=== PATIENT | male | born 1975 | race American Indian/Alaskan Native ===

== ENCOUNTER 2019-04-19 15:17 | Emergency (ER) | payer OTHER, MEDICAID, SELFPAY ==
[2019-04-19 15:19] VITALS: BP 117/70; PULSE 70; RESP 20; TEMP 36.6; O2SAT 98
[2019-04-19 16:04] LABS: Alanine Aminotransferase 33 IU/L (<50); Albumin 4.4 g/dL (3.5-5.0); Albumin Globulin Ratio 1.3 (1.0-2.8); Alkaline Phosphatase 63 U/L (38-126); Aspartate Aminotransferase 42 IU/L (17-59); BUN Creatinine Ratio 14.4 (6-22); Bilirubin Total 0.4 mg/dL (0.2-1.3); Blood Urea Nitrogen 13 mg/dL (9-20); Calcium 8.8 mg/dL (8.4-10.2); Carbon Dioxide 30 mmol/L (22-32); Chloride 102 mmol/L (98-107); Estimated Glomerular Filt Rate > 60.0 mL/min (>60); Globulin 3.4 g/dL (1.7-4.1); Glucose 109 mg/dL (70-100); HEMOLYSIS < 15 (0-50); Potassium 4.3 mmol/L (3.4-5.1); Sodium 140 mmol/L (137-145); Total Protein 7.8 g/dL (6.3-8.2)
[2019-04-19 16:08] LABS: Add Manual Diff / Slide Review NO; Basophils Absolute Auto 0 /uL (0-100); Basophils Percent Auto 0.4 % (0-2); Eosinophils Absolute Auto 100 /uL (0-450); Eosinophils Percent Auto 2.3 % (2-4); Hematocrit 39.3 % (41-53); Hemoglobin 13.4 g/dL (13.5-17.5); Lymphocytes Absolute Auto 2300 /uL (1100-4500); Lymphocytes Percent Auto 42.4 % (25-40); Mean Corpuscular Hemoglobin 28.5 PG (26-34); Mean Corpuscular Volume 83.9 fL (80-100); Monocytes Absolute Auto 500 /uL (0-900); Monocytes Percent Auto 10.3 % (3-14); Neutrophils Absolute Auto 2400 /uL (1500-7000); Neutrophils Percent Auto 44.6 % (50-75); Platelet Count 281 X10^3/uL (150-400); Red Blood Cell Count 4.69 X10^6/uL (4.5-5.9); Red Cell Distribution Width 14.3 % (11.6-14.8); White Blood Cell Count 5.3 X10^3/uL (4.5-11.0)
--- NOTE | 2019-04-19 16:49 | DI.RAD.S_ITS ---
PROCEDURE: XR THORACIC SPINE 2V INDICATIONS: back pain TECHNIQUE: 3 views of the thoracic spine were acquired. COMPARISON: [facility], , CHEST 2 VIEW, 06/26/2017, 15:25. FINDINGS: Bones: On the lateral views, the cervicothoracic junction is adequately visualized and the alignment through this region is within normal limits. The vertebral body heights are within normal limits throughout the thoracic spine without evidence to suggest acute compression fracture. The bone mineralization is within normal limits. No significant degenerative changes of the thoracic spine are evident. Soft tissues: The imaged overlying soft tissues of the chest are within normal limits. IMPRESSION: No acute osseous abnormality or significant degenerative changes of the thoracic spine. Dictated by: Hank Valerio M.D. on 04/19/2019 at 16:05 Approved by: Hank Valerio M.D. on 04/19/2019 at 16:06
[2019-04-19] MEDS: LIDOCAINE PATCH 1 EACH ADH..PATCH TOP (17:02)
[2019-04-19] MEDS: CYCLOBENZAPRINE 10 MG TABLET PO (17:02)
[2019-04-19] MEDS: KETOROLAC 60 MG/2 ML VIAL IM (17:02)
[2019-04-19] MEDS: KETOROLAC 10MG PREPACK 1 BOTTLE MISC (17:59)
[2019-04-19] MEDS: CYCLOBENZAPRINE 10 MG PREPACK 1 BOTTLE MISC (17:59)
--- NOTE | 2019-04-19 19:57 | ED.ABDPAIN ---
HPI - Abdominal Pain <JEANE Foster - Last Filed: 04/19/19 20:02> General Chief Complaint: Abdominal Pain Stated Complaint: left side back pain,thinks kidney Time Seen by Provider: 04/19/19 16:23 Source: patient and family Mode of arrival: Ambulatory Limitations: no limitations History of Present Illness HPI narrative: The patient is a 43-year-old male former smoker with history of addiction issues on Suboxone who presents with a chief complaint of left-sided back pain. He states has been ongoing for a week, started after he was bowling. He states that the pain is just underneath his left shoulder blade and worse with pressure. He states it is worse with lifting his arm. He is worried about his kidneys. Denies dysuria urgency frequency hematuria. Denies any history of kidney stones. Denies any falls or trauma. Denies any fevers nausea vomiting or diarrhea. Related Data Previous Rx's Medication Instructions Recorded cyclobenzaprine 10 mg PO TID PRN #14 tab 04/19/19 ketorolac 10 mg PO TID PRN #14 tab 04/19/19 Allergies Allergy/AdvReac Type Severity Reaction Status Date / Time No Known Drug Allergies Allergy Verified 04/19/19 17:02 Review of Systems <NICOLE Foster - Last Filed: 04/19/19 20:02> Review of Systems Narrative: GENERAL: Denies chills, fatigue, malaise, fever, sweats. HEENT: Denies sinus pain, ear pain, sore throat, difficulty swallowing, dizziness. RESPIRATORY: Denies dyspnea, cough, wheezing, hemoptysis, sputum. CARDIOVASCULAR: Denies chest pain, palpitations, orthopnea, edema, GASTROINTESTINAL: See HPI : See HPI MUSCULOSKELETAL: see HPI SKIN: Denies rash, skin lesions, or other NEUROLOGIC: Denies weakness, headache, numbness, change in speech, confusion, seizures, incoordination. PSYCHIATRIC: No concerning psychosocial issues. 12 point review of systems is negative except for those stated above Exam <JEANE Foster - Last Filed: 04/19/19 20:02> Narrative Exam Narrative: GENERAL: This is a well-nourished, well-developed patient, in no acute distress HEAD: Atraumatic. Normocephalic. No temporal or scalp tenderness. EYES: Pupils equal round and reactive. Extraocular motions intact. No scleral icterus. No injection or drainage. ENT: Nose without bleeding, purulent drainage or septal hematoma. Throat without erythema, tonsillar hypertrophy or exudate. Uvula midline. Airway patent. NECK: Trachea midline. No JVD or lymphadenopathy. Supple, nontender, no meningeal signs. CARDIOVASCULAR: Regular rate and rhythm without murmurs, gallops, or rubs. RESPIRATORY: Clear to auscultation. Breath sounds equal bilaterally. No wheezes, rales, or rhonchi. GASTROINTESTINAL: Abdomen soft, non-tender, nondistended. No hepato-splenomegaly, or palpable masses. No guarding. EXTREMITIES: No clubbing, cyanosis, or edema. No joint tenderness, effusion, or edema noted. Full range of motion bilateral upper extremities. Positive radial pulses. BACK: Nontender to CT or L-spine palpation without deformity or crepitance. No flank tenderness. No CVA tenderness bilaterally. Pain to palpation just distal to left scapula. NEURO: AOx3. SKIN: No rash or erythema. Initial Vital Signs Initial Vital Signs: Vital Signs Temperature 97.8 F 04/19/19 15:19 Pulse Rate 70 04/19/19 15:19 Respiratory Rate 20 04/19/19 15:19 Blood Pressure 117/70 04/19/19 15:19 Pulse Oximetry 98 04/19/19 15:19 <Sara Whitman MD - Last Filed: 04/19/19 20:11> Initial Vital Signs Initial Vital Signs: Vital Signs Temperature 97.8 F 04/19/19 15:19 Pulse Rate 70 04/19/19 15:19 Respiratory Rate 20 04/19/19 15:19 Blood Pressure 117/70 04/19/19 15:19 Pulse Oximetry 98 04/19/19 15:19 Course <JEANE Foster - Last Filed: 04/19/19 20:02> Orders Ordered: ED Orders 04/19/19 15:44 CMP [Comprehensive Metabolic Panel] Stat Complete Blood Count AUTO DIFF Stat 04/19/19 16:49 XR thoracic spine 3V Stat Discontinued Medications Cyclobenzaprine HCl (Flexeril) 10 mg PO NOW ONE Stop: 04/19/19 16:50 Last Admin: 04/19/19 17:02 Dose: 10 mg Documented by: MEISENEduardo Cyclobenzaprine HCl (Flexeril 10 Mg Prepack) 1 bottle MISC SEEINSTR ONE Stop: 04/19/19 17:45 Last Admin: 04/19/19 17:59 Dose: 1 bottle Documented by: YULIA Ketorolac Tromethamine (Toradol) 60 mg IM NOW ONE Stop: 04/19/19 16:50 Last Admin: 04/19/19 17:02 Dose: 60 mg Documented by: ROSENDOSENEduardo Ketorolac Tromethamine (Toradol 10mg Prepack) 1 bottle MISC SEEINSTR ONE Stop: 04/19/19 17:45 Last Admin: 04/19/19 17:59 Dose: 1 bottle Documented by: YULIA Lidocaine (Lidoderm) 1 each TOP NOW ONE Stop: 04/19/19 16:50 Last Admin: 04/19/19 17:02 Dose: 1 each Documented by: YULIA Vital Signs Vital signs: Vital Signs - 8 hr 04/19/19 15:19 Temperature 97.8 F Pulse Rate 70 Respiratory Rate 20 Blood Pressure 117/70 Pulse Oximetry 98 <Sara Whitman MD - Last Filed: 04/19/19 20:11> Orders Ordered: ED Orders 04/19/19 15:44 CMP [Comprehensive Metabolic Panel] Stat Complete Blood Count AUTO DIFF Stat 04/19/19 16:49 XR thoracic spine 3V Stat Discontinued Medications Cyclobenzaprine HCl (Flexeril) 10 mg PO NOW ONE Stop: 04/19/19 16:50 Last Admin: 04/19/19 17:02 Dose: 10 mg Documented by: YULIA Cyclobenzaprine HCl (Flexeril 10 Mg Prepack) 1 bottle MISC SEEINSTR ONE Stop: 04/19/19 17:45 Last Admin: 04/19/19 17:59 Dose: 1 bottle Documented by: YULIA Ketorolac Tromethamine (Toradol) 60 mg IM NOW ONE Stop: 04/19/19 16:50 Last Admin: 04/19/19 17:02 Dose: 60 mg Documented by: YULIA Ketorolac Tromethamine (Toradol 10mg Prepack) 1 bottle MISC SEEINSTR ONE Stop: 04/19/19 17:45 Last Admin: 04/19/19 17:59 Dose: 1 bottle Documented by: YULIA Lidocaine (Lidoderm) 1 each TOP NOW ONE Stop: 04/19/19 16:50 Last Admin: 04/19/19 17:02 Dose: 1 each Documented by: YULIA Vital Signs Vital signs: Vital Signs - 8 hr 04/19/19 15:19 Temperature 97.8 F Pulse Rate 70 Respiratory Rate 20 Blood Pressure 117/70 Pulse Oximetry 98 MDM - Abdominal Pain <Saida Conde POLL CLERK-BC - Last Filed: 04/19/19 20:02> Lab Data Result diagrams: 04/19/19 15:44 04/19/19 15:44 Labs: Lab Results 04/19/19 04/19/19 Range/Units 15:44 15:44 WBC 5.3 (4.5-11.0) X10^3/uL RBC 4.69 (4.5-5.9) X10^6/uL Hgb 13.4 L (13.5-17.5) g/dL Hct 39.3 L (41-53) % MCV 83.9 (80-100) fL MCH 28.5 (26-34) PG MCHC 34.0 (30-36) % RDW 14.3 (11.6-14.8) % Plt Count 281 (150-400) X10^3/uL Neut % (Auto) 44.6 L (50-75) % Lymph % (Auto) 42.4 H (25-40) % [place] % (Auto) 10.3 (3-14) % Eos % (Auto) 2.3 (2-4) % Baso % (Auto) 0.4 (0-2) % Neut # (Auto) 2400 (9850-1286) /uL Lymph # (Auto) 2300 (6129-7456) /uL [place] # (Auto) 500 (0-900) /uL Eos # (Auto) 100 (0-450) /uL Baso # (Auto) 0 (0-100) /uL Sodium 140 (137-145) mmol/L Potassium 4.3 (3.4-5.1) mmol/L Chloride 102 (98-107) mmol/L Carbon Dioxide 30 (22-32) mmol/L BUN 13 (9-20) mg/dL Creatinine 0.90 (0.66-1.25) mg/dL Estimated GFR > 60.0 (>60) mL/min BUN/Creatinine Ratio 14.4 (6-22) Glucose 109 H (70-100) mg/dL Calcium 8.8 (8.4-10.2) mg/dL Total Bilirubin 0.4 (0.2-1.3) mg/dL AST 42 (17-59) IU/L ALT 33 (<50) IU/L Alkaline Phosphatase 63 (38-126) U/L Total Protein 7.8 (6.3-8.2) g/dL Albumin 4.4 (3.5-5.0) g/dL Globulin 3.4 (1.7-4.1) g/dL Albumin/Globulin Ratio 1.3 (1.0-2.8) Point of care testing: Urine Dip Bedside Urine Glucose 100 mg/dl Bedside Urine Ketone - Negative Urine Specific [place] 1.020 Bedside Urine Occult Blood - Negative Bedside Urine pH 6.0 Bedside Urine Protein +/- 15 Bedside Urine Urobilinogen - Negative Bedside Urine Nitrite - Negative Bedside Urine Leukocytes - Negative Esterase Imaging Data T-spine x-ray: Radiologist's Impression: [address] [address] XRay Report Signed Patient: Chiki RamachandranMR#: [id number] : 1975Acct:[id number] Age/Sex: 43 / MDate of Service: 04/19/19 Loc: ED Accession Number: [id number] Procedure: XR thoracic spine 3V Ordering Provider: Saida Conde- PROCEDURE: XR THORACIC SPINE 2V INDICATIONS: back pain TECHNIQUE: 3 views of the thoracic spine were acquired. COMPARISON: [facility], , CHEST 2 VIEW, 06/26/2017, 15:25. FINDINGS: Bones: On the lateral views, the cervicothoracic junction is adequately visualized and the alignment through this region is within normal limits. The vertebral body heights are within normal limits throughout the thoracic spine without evidence to suggest acute compression fracture. The bone mineralization is within normal limits. No significant degenerative changes of the thoracic spine are evident. Soft tissues: The imaged overlying soft tissues of the chest are within normal limits. IMPRESSION: No acute osseous abnormality or significant degenerative changes of the thoracic spine. Dictated by: Hank Valerio M.D. on 04/19/2019 at 16:05 Approved by: Hank Valerio M.D. on 04/19/2019 at 16:06 [facility] Narrative Medical decision making narrative: The patient is a 43-year-old male who presents with a chief complaint of left-sided back pain ongoing for over week worse with pressure and movement. He is concerned about a potential kidney stone, but his pain is much superior to where that is and he denies CVA tenderness. His urine shows no signs of hematuria on evaluation. His lab work and kidney function is within normal limits. His exam correlates with musculoskeletal pain, and muscle spasm. He felt much improved after the above-stated therapies. Discussed not combining Toradol with any other NSAIDs such as Mobic or meloxicam. Discussed at length the importance of following up with primary care provider in the next few days. Discussed that Flexeril can be sedating. Discussed at length coming back to the emergency department for acute concerns such as incontinence bowel continence bladder saddle anesthesia. Patient has no questions or concerns upon discharge and states understanding of return precautions as well as follow-up care. <Sara Whitman MD - Last Filed: 04/19/19 20:11> Lab Data Labs: Lab Results 04/19/19 04/19/19 Range/Units 15:44 15:44 WBC 5.3 (4.5-11.0) X10^3/uL RBC 4.69 (4.5-5.9) X10^6/uL Hgb 13.4 L (13.5-17.5) g/dL Hct 39.3 L (41-53) % MCV 83.9 (80-100) fL MCH 28.5 (26-34) PG MCHC 34.0 (30-36) % RDW 14.3 (11.6-14.8) % Plt Count 281 (150-400) X10^3/uL Neut % (Auto) 44.6 L (50-75) % Lymph % (Auto) 42.4 H (25-40) % [place] % (Auto) 10.3 (3-14) % Eos % (Auto) 2.3 (2-4) % Baso % (Auto) 0.4 (0-2) % Neut # (Auto) 2400 (0159-3373) /uL Lymph # (Auto) 2300 (6282-1348) /uL [place] # (Auto) 500 (0-900) /uL Eos # (Auto) 100 (0-450) /uL Baso # (Auto) 0 (0-100) /uL Sodium 140 (137-145) mmol/L Potassium 4.3 (3.4-5.1) mmol/L Chloride 102 (98-107) mmol/L Carbon Dioxide 30 (22-32) mmol/L BUN 13 (9-20) mg/dL Creatinine 0.90 (0.66-1.25) mg/dL Estimated GFR > 60.0 (>60) mL/min BUN/Creatinine Ratio 14.4 (6-22) Glucose 109 H (70-100) mg/dL Calcium 8.8 (8.4-10.2) mg/dL Total Bilirubin 0.4 (0.2-1.3) mg/dL AST 42 (17-59) IU/L ALT 33 (<50) IU/L Alkaline Phosphatase 63 (38-126) U/L Total Protein 7.8 (6.3-8.2) g/dL Albumin 4.4 (3.5-5.0) g/dL Globulin 3.4 (1.7-4.1) g/dL Albumin/Globulin Ratio 1.3 (1.0-2.8) Point of care testing: Urine Dip Bedside Urine Glucose 100 mg/dl Bedside Urine Ketone - Negative Urine Specific [place] 1.020 Bedside Urine Occult Blood - Negative Bedside Urine pH 6.0 Bedside Urine Protein +/- 15 Bedside Urine Urobilinogen - Negative Bedside Urine Nitrite - Negative Bedside Urine Leukocytes - Negative Esterase Discharge Plan Departure Patient Disposition: Home Clinical Impression: Muscle spasm Back pain Qualifiers: Back pain location: thoracic back pain Chronicity: acute Back pain laterality: left Qualified Code(s): M54.6 - Pain in thoracic spine Discharge Date/Time: 04/19/19 18:04 Instructions: DI for Thoracic Back Pain, DI for Muscle Spasm Activity Restrictions/Additional Instructions: I sent 2 prescriptions to [facility] We've also given you to take-home packs. I believe that you're having muscle spasm. Your x-ray shows no acute findings. Please come back to the emergency department for any acute concerns such as concern of heart attack, stroke, incontinence bowel, incontinence of bladder numbness in her groin or other concerning neurological findings Flexeril as a muscle relaxer. He can be sedating. Do not take and drive. Do not immediately combine it with any other sedating agents. Be cautious using that with Suboxone. I suggest not taking them at the same time. I have given you a prescription of Toradol. This is an NSAID. Do not combine it with other NSAIDs such as meloxicam or Mobic Aleve or ibuprofen. I suggest taking it with some food, as it can irritate your stomach. Please follow-up with primary care provider the next few days Prescriptions: New cyclobenzaprine 10 mg tablet 10 mg PO TID PRN (Reason: muscle spasm) Qty: 14 RF: 0 ketorolac 10 mg tablet 10 mg PO TID PRN (Reason: pain) Qty: 14 RF: 0 Referrals: Brendan Gomez MD [Non-Staff] -
== END 2019-04-19 18:04 | disposition home or self-care (01) ==
PROVIDERS: Emergency Medicine; Emergency Provider Nurse Practitioner Family
DX: M62.830 Muscle spasm of back (principal); M54.6 Pain in thoracic spine
CPT/HCPCS: 72072; 80053; 81003; 85025; 96372; 99283; 99284; J1885

== ENCOUNTER → 2020-05-11 15:45 | Outpatient (CLI) | payer OTHER, SELFPAY ==
--- NOTE | 2020-05-11 | DI.RAD.S_ITS ---
PROCEDURE: XR WRIST RT MIN 3V INDICATIONS: contusion of right wrist TECHNIQUE: 4 views of the wrist were acquired. COMPARISON: None. FINDINGS: Bones: No fractures or dislocations. No suspicious bony lesions. Scaphoid view: No visualized fracture. Soft tissues: No suspicious soft tissue calcifications. IMPRESSION: No visualized acute fracture or dislocation. However, if clinical concern and/or pain persist, short interval imaging followup in 7-10 days is recommended, as occult injury cannot be definitively excluded. Dictated by: Jacqueline Valenzuela M.D. on 05/11/2020 at 16:48 Approved by: Jacqueline Valenzuela M.D. on 05/11/2020 at 16:49
== END ==
PROVIDERS: Referring Provider Family Medicine; Visit Provider Family Medicine
DX: S60.211A Contusion of right wrist, initial encounter (principal)
CPT/HCPCS: 73110

== ENCOUNTER 2022-03-13 17:37 | Inpatient (IN) | payer MEDICAID, OTHER, SELFPAY ==
[2022-03-13] VITALS (16 sets, daily range): BP systolic 109–143; BP diastolic 50–73; PULSE 103–119; RESP 22–38; TEMP 36.6; O2SAT 91–95; BMI 37.3
--- NOTE | 2022-03-13 18:05 | DI.RAD.S_ITS ---
PROCEDURE: XR CHEST 1V INDICATIONS: Shortness of breath TECHNIQUE: One view of the chest was acquired. COMPARISON: [facility], CT, CT ABDOMEN PELVIS W CON, 03/13/2022, 19:48. [facility], CR, CHEST 2 VIEW, 06/26/2017, 15:25. [facility], CR, CHEST 2 VIEW, 03/27/2012, 4:53. FINDINGS: Surgical changes and devices: None. Lungs and pleura: Left suprahilar opacity. No pleural effusions or pneumothorax. Mediastinum: Mediastinal contours appear similar. Heart size is normal. Bones and chest wall: No suspicious bony lesions. Overlying soft tissues appear unremarkable. IMPRESSION: Left suprahilar opacity. This could represent pneumonia. Atelectasis could have a similar appearance. Dictated by: Dominick Bruno M.D. on 03/13/2022 at 20:14 Approved by: Dominick Bruno M.D. on 03/13/2022 at 20:16
--- NOTE | 2022-03-13 18:18 | ED_ITS ---
HPI - General Adult General Chief complaint: Shortness of Breath/Dyspnea Stated complaint: short of breath, fever Time Seen by Provider: 03/13/22 18:18 History of Present Illness HPI narrative: 46-year-old gentleman presents complaining of fever, cough headache, body aches increasing dyspnea after 10 days of upper respiratory symptoms. He states it is worse when he laid down, and is concerned that he is simply is not getting better. He is having moderate diffuse abdominal pain, no appetite nausea but no overt vomiting, no diarrhea. Notes that he does not have any chronic lung di sease and does not use inhalers but does have increasing wheeze, work of breathing and with simply moving to facilitate physical exam his oxygen saturations dropped to 87% on room air. Related Data Allergies Allergy/AdvReac Type Severity Reaction Status Date / Time No Known Drug Allergies Allergy Verified 03/13/22 21:26 Review of Systems Review of Systems Narrative: Remainder of complete review of systems is otherwise unremarkable except for that included in the HPI. Patient History Family History Mother Diabetes mellitus Father Cancer Social History Smoking Status: Never smoker alcohol intake: former Smoking Status: Never smoker Substance Use Type: does not use Exam Initial Vital Signs Initial Vital Signs: Vital Signs Temperature 97.8 F 03/13/22 17:59 Pulse Rate 119 H 03/13/22 17:59 Respiratory Rate 22 03/13/22 17:59 Blood Pressure 143/63 H 03/13/22 17:59 Pulse Oximetry 91 03/13/22 17:59 Oxygen Delivery Method 03/13/22 17:59 General: Appears generally unwell, fatigued with wheezing and tachypnea but Able to give a complete and coherent history. HEENT: Moist mucous membranes, normal sclera with reactive pupils, Neck: No JVD, supple Respiratory: Lungs with scattered basilar wheezes and crackles, no consolidated findings. No retractions but tachypnea is appreciated. Full and symmetrical air movement Cardiac: Tachycardic but otherwise Regular rate and rhythm no murmurs no bruits Abdomen: Soft, mild diffuse tenderness without rebound or guarding,, good bowel tones, no flank pain Skin: Warm and dry, no rashes Neurologic: Globally weak but Grossly neurologically intact with no obvious asymmetries or abnormalities Extremities: No trauma, well perfused, chronic venous stasis changes, left calf is slightly more swollen than the right both with 1 to 2+ edema. Psych: Cooperative, appropriate insight and affect Course Orders Ordered: Acetaminophen (Acetaminophen 325 Mg Tablet) 650 mg PO Q6H PRN PRN Reason: Fever/Mild Pain (1-3) Hydrocodone Bitart/Acetaminophen (Hydrocodone/Acet 5/325 Tablet) 1 tab PO Q4H PRN PRN Reason: Pain, Moderate (4-6) Albuterol/Ipratropium (Albuterol/Ipratropium 3 Ml Ampul) 3 ml INH [id number] [facility] Last Admin: 03/14/22 07:46 Dose: 3 ml Documented By: MISAEL Enoxaparin Sodium (Enoxaparin 40 Mg/0.4 Ml Syringe) 40 mg SUBCUT DAILY [facility] Azithromycin 500 mg/ Dextrose 250 mls @ 250 mls/hr IV Q24H [facility] Stop: 03/17/22 02:59 Last Admin: 03/14/22 05:05 Dose: 250 mls/hr Documented By: ÓSCAR Ceftriaxone Sodium 1,000 mg/ (Sodium Chloride) 100 mls @ 200 mls/hr IV Q24H [facility] Stop: 03/20/22 02:59 Naloxone HCl (Naloxone 0.4 Mg/Ml Vial) 0.2 mg IV Q2MIN PRN PRN Reason: Opiate Reversal Ondansetron HCl (Ondansetron 4 Mg/2 Ml Inj) 4 mg IV Q8HR PRN PRN Reason: Nausea And Vomiting Last Admin: 03/14/22 06:28 Dose: 4 mg Documented By: ÓSCAR Prednisone (Prednisone 20 Mg Tablet) 40 mg PO DAILY [facility] Stop: 03/21/22 08:59 Discontinued Medications Acetaminophen (Acetaminophen 325 Mg Tablet) 975 mg PO NOW ONE Stop: 03/13/22 23:18 Last Admin: 03/13/22 23:21 Dose: 975 mg Documented By: KANWAL Piperacillin Sod/Tazobactam (Sod 4.5 gm/ Sodium Chloride) 100 mls @ 200 mls/hr IV NOW ONE Stop: 03/13/22 20:06 Last Infusion: 03/13/22 21:21 Dose: 0 mls/hr Documented By: Admin: 03/13/22 20:36 Dose: 200 mls/hr Documented By: JAZ POTASSIUM CHLORIDE IN WATER (Potassium Cl 10 Meq/100 Ml Joyce) 10 meq in 100 mls @ 100 mls/hr IV Q1H ADRIÁN Stop: 03/14/22 00:14 Last Infusion: 03/14/22 02:29 Dose: 100 mls/hr Documented By: Admin: 03/14/22 01:31 Dose: 100 mls/hr Documented By: Infusion: 03/14/22 00:30 Dose: 100 mls/hr Documented By: Admin: 03/13/22 23:30 Dose: 100 mls/hr Documented By: Infusion: 03/13/22 23:30 Dose: 100 mls/hr Documented By: Admin: 03/13/22 22:31 Dose: 100 mls/hr Documented By: Infusion: 03/13/22 22:27 Dose: 0 mls/hr Documented By: Admin: 03/13/22 21:26 Dose: 100 mls/hr Documented By: KANWAL Ceftriaxone Sodium 2,000 mg/ (Sodium Chloride) 100 mls @ 200 mls/hr IV Q24H [facility] Stop: 03/19/22 02:59 Last Admin: 03/14/22 03:16 Dose: Not Given Documented By: ÓSCAR Ceftriaxone Sodium 1,000 mg/ (Sodium Chloride) 100 mls @ 200 mls/hr IV Q24H [facility] Stop: 03/19/22 02:59 Last Admin: 03/14/22 03:16 Dose: Not Given Documented By: ÓSCAR Ceftriaxone Sodium 2,000 mg/ (Sodium Chloride) 100 mls @ 200 mls/hr IV NOW ONE Stop: 03/14/22 03:42 Last Admin: 03/14/22 04:02 Dose: 200 mls/hr Documented By: ÓSCAR Potassium Chloride (Potassium Chloride 20 Meq Tab) 40 meq PO NOW ONE Stop: 03/13/22 20:06 Last Admin: 03/13/22 20:36 Dose: 40 meq Documented By: JAZ Vital Signs Vital signs: Vital Signs - 8 hr 03/13/22 17:59 Temperature 97.8 F Pulse Rate 119 H Respiratory Rate 22 Blood Pressure 143/63 H Pulse Oximetry 91 Oxygen Delivery Method Room Air Medical Decision Making Lab Data Result diagrams: 03/14/22 06:33 03/14/22 06:33 Labs: Lab Results 03/13/22 03/13/22 03/13/22 Range/Units 17:07 19:00 19:00 WBC 21.8 H (4.5-11.0) X10^3/uL RBC 4.65 (4.5-5.9) X10^6/uL Hgb 12.7 L (13.5-17.5) g/dL Hct 37.6 L (41-53) % MCV 80.8 (80-100) fL MCH 27.3 (26-34) PG MCHC 33.9 (30-36) % RDW 13.5 (11.6-14.8) % Plt Count 534 H (150-400) X10^3/uL Neut % (Auto) 84.9 H (50-75) % Lymph % (Auto) 9.2 L (25-40) % [place] % (Auto) 5.0 (3-14) % Eos % (Auto) 0.2 L (2-4) % Baso % (Auto) 0.7 (0-2) % Neut # (Auto) 93521 H (0295-6055) /uL Lymph # (Auto) 2000 (9938-2661) /uL [place] # (Auto) 1100 H (0-900) /uL Eos # (Auto) 0 (0-450) /uL Baso # (Auto) 200 H (0-100) /uL PT 17.8 H (10.1-12.7) SECONDS INR 1.5 H (0.9-1.3) Sodium (137-145) mmol/L Potassium (3.4-5.1) mmol/L Chloride (98-107) mmol/L Carbon Dioxide (22-32) mmol/L BUN (9-20) mg/dL Creatinine (0.66-1.25) mg/dL Estimated GFR (>60) mL/min BUN/Creatinine Ratio (6-22) Glucose (70-100) mg/dL Lactate (0.7-2.1) mmol/L Calcium (8.4-10.2) mg/dL Total Bilirubin (0.2-1.3) mg/dL AST (17-59) IU/L ALT (<50) IU/L Alkaline Phosphatase (38-126) U/L Troponin I (0.01-0.034) ng/mL NT-Pro-B Natriuret Pep (<125) pg/mL Total Protein (6.3-8.2) g/dL Albumin (3.5-5.0) g/dL Globulin (1.7-4.1) g/dL Albumin/Globulin Ratio (1.0-2.8) Procalcitonin (<0.5) ng/mL Urine Color Urine Appearance Urine pH Ur Specific [place] Urine Protein Urine Glucose (UA) Urine Ketones Urine Occult Blood Urine Nitrate Urine Bilirubin Urine Urobilinogen Ur Leukocyte Esterase Urine RBC Urine WBC Ur Squamous Epith Cells Ur Transition Epith Cell Ur Renal Epithelial Cell Calcium Oxalate Crystal Uric Acid Crystals Triple Phos Crystals Other Crystals Amorphous Sediment Urine Bacteria Hyaline Casts Granular Casts RBC Casts WBC Casts Other Casts Urine Mucus Urine Trichomonas Urine Yeast Urine Sperm Ur Culture Indicated? Micro UA Comment SARS-CoV-2 (PCR) Negative (Negative) Influenza A (RT-PCR) Flu a positive H (NEGATIVE) Influenza B (RT-PCR) Flu b negative (NEGATIVE) 03/13/22 03/13/22 03/13/22 Range/Units 19:00 19:00 19:00 WBC (4.5-11.0) X10^3/uL RBC (4.5-5.9) X10^6/uL Hgb (13.5-17.5) g/dL Hct (41-53) % MCV (80-100) fL MCH (26-34) PG MCHC (30-36) % RDW (11.6-14.8) % Plt Count (150-400) X10^3/uL Neut % (Auto) (50-75) % Lymph % (Auto) (25-40) % [place] % (Auto) (3-14) % Eos % (Auto) (2-4) % Baso % (Auto) (0-2) % Neut # (Auto) (6613-7946) /uL Lymph # (Auto) (4019-2437) /uL [place] # (Auto) (0-900) /uL Eos # (Auto) (0-450) /uL Baso # (Auto) (0-100) /uL PT (10.1-12.7) SECONDS INR (0.9-1.3) Sodium 132 L (137-145) mmol/L Potassium 2.9 L (3.4-5.1) mmol/L Chloride 90 L (98-107) mmol/L Carbon Dioxide 32 (22-32) mmol/L BUN 9 (9-20) mg/dL Creatinine 0.88 (0.66-1.25) mg/dL Estimated GFR > 60 (>60) mL/min BUN/Creatinine Ratio 10.2 (6-22) Glucose 126 H (70-100) mg/dL Lactate 1.0 (0.7-2.1) mmol/L Calcium 8.4 (8.4-10.2) mg/dL Total Bilirubin 0.4 (0.2-1.3) mg/dL AST 37 (17-59) IU/L ALT 35 (<50) IU/L Alkaline Phosphatase 153 H (38-126) U/L Troponin I < 0.012 (0.01-0.034) ng/mL NT-Pro-B Natriuret Pep 44 (<125) pg/mL Total Protein 7.8 (6.3-8.2) g/dL Albumin 3.5 (3.5-5.0) g/dL Globulin 4.3 H (1.7-4.1) g/dL Albumin/Globulin Ratio 0.8 L (1.0-2.8) Procalcitonin 1.27 H (<0.5) ng/mL Urine Color Urine Appearance Urine pH Ur Specific [place] Urine Protein Urine Glucose (UA) Urine Ketones Urine Occult Blood Urine Nitrate Urine Bilirubin Urine Urobilinogen Ur Leukocyte Esterase Urine RBC Urine WBC Ur Squamous Epith Cells Ur Transition Epith Cell Ur Renal Epithelial Cell Calcium Oxalate Crystal Uric Acid Crystals Triple Phos Crystals Other Crystals Amorphous Sediment Urine Bacteria Hyaline Casts Granular Casts RBC Casts WBC Casts Other Casts Urine Mucus Urine Trichomonas Urine Yeast Urine Sperm Ur Culture Indicated? Micro UA Comment SARS-CoV-2 (PCR) (Negative) Influenza A (RT-PCR) (NEGATIVE) Influenza B (RT-PCR) (NEGATIVE) 03/13/22 03/13/22 Range/Units 20:52 21:14 WBC (4.5-11.0) X10^3/uL RBC (4.5-5.9) X10^6/uL Hgb (13.5-17.5) g/dL Hct (41-53) % MCV (80-100) fL MCH (26-34) PG MCHC (30-36) % RDW (11.6-14.8) % Plt Count (150-400) X10^3/uL Neut % (Auto) (50-75) % Lymph % (Auto) (25-40) % [place] % (Auto) (3-14) % Eos % (Auto) (2-4) % Baso % (Auto) (0-2) % Neut # (Auto) (1573-8758) /uL Lymph # (Auto) (2873-6868) /uL [place] # (Auto) (0-900) /uL Eos # (Auto) (0-450) /uL Baso # (Auto) (0-100) /uL PT (10.1-12.7) SECONDS INR (0.9-1.3) Sodium (137-145) mmol/L Potassium (3.4-5.1) mmol/L Chloride (98-107) mmol/L Carbon Dioxide (22-32) mmol/L BUN (9-20) mg/dL Creatinine (0.66-1.25) mg/dL Estimated GFR (>60) mL/min BUN/Creatinine Ratio (6-22) Glucose (70-100) mg/dL Lactate (0.7-2.1) mmol/L Calcium (8.4-10.2) mg/dL Total Bilirubin (0.2-1.3) mg/dL AST (17-59) IU/L ALT (<50) IU/L Alkaline Phosphatase (38-126) U/L Troponin I (0.01-0.034) ng/mL NT-Pro-B Natriuret Pep (<125) pg/mL Total Protein (6.3-8.2) g/dL Albumin (3.5-5.0) g/dL Globulin (1.7-4.1) g/dL Albumin/Globulin Ratio (1.0-2.8) Procalcitonin (<0.5) ng/mL Urine Color Cancelled Yellow Urine Appearance Cancelled Clear Urine pH Cancelled 6.5 Ur Specific [place] Cancelled <=1.005 Urine Protein Cancelled Trace H Urine Glucose (UA) Cancelled Negative Urine Ketones Cancelled Negative Urine Occult Blood Cancelled Trace-intact Urine Nitrate Cancelled Negative Urine Bilirubin Cancelled Negative Urine Urobilinogen Cancelled 0.2 Ur Leukocyte Esterase Cancelled Negative Urine RBC Cancelled None seen Urine WBC Cancelled 0-1/hpf Ur Squamous Epith Cells Cancelled Ur Transition Epith Cell Cancelled Ur Renal Epithelial Cell Cancelled Calcium Oxalate Crystal Cancelled Uric Acid Crystals Cancelled Triple Phos Crystals Cancelled Other Crystals Cancelled Amorphous Sediment Cancelled Urine Bacteria Cancelled None seen Hyaline Casts Cancelled Granular Casts Cancelled RBC Casts Cancelled WBC Casts Cancelled Other Casts Cancelled Urine Mucus Cancelled Urine Trichomonas Cancelled Urine Yeast Cancelled Urine Sperm Cancelled Ur Culture Indicated? Cancelled Micro UA Comment Cancelled * SARS-CoV-2 (PCR) (Negative) Influenza A (RT-PCR) (NEGATIVE) Influenza B (RT-PCR) (NEGATIVE) Imaging Data Chest x-ray: My Impression: Some mild peribronchial cuffing, slight fluid overload, no pleural effusions, no cardiomegaly, no consolidated findings no pneumothorax Radiologist's Impression: FINDINGS:? ? Surgical changes and devices:? None.? ? Lungs and pleura:? Left suprahilar opacity.? No pleural effusions or pneumothorax.? ? Mediastinum:? Mediastinal contours appear similar.? Heart size is normal.? ? Bones and chest wall:? No suspicious bony lesions.? Overlying soft tissues appear unremarkable.? ? IMPRESSION:? Left suprahilar opacity.? This could represent pneumonia.? Atelectasis could h ave a similar appearance. ? ? Dictated by: Dominick Bruno M.D. on 03/13/2022 at 20:14 ? ? CT Chest, abd pelvis: Radiologist's Impression: FINDINGS:? Image quality:? Good.? ? Pulmonary arteries:? Pulmonary arteries are normal in size, and demonstrate no intraluminal filling defects to suggest central pulmonary embolism.? ? Lungs and pleura:? Consolidation in the left upper lobe medially.? Scattered opacity bilaterally.? Some of this opacity may have a tree-in-bud nodular distribution.? Secretions in the left mainstem bronchus.? A few areas of distal mucus airway plugging.? No pleural effusions or pneumothorax.? ? Mediastinum:? Heart size is normal, without pericardial effusion.? No mediastinal or hilar adenopathy.? Shotty prevascular node, (), suspect reactive etiology.? Thoracic aorta is normal in caliber and enhancement.? Esophagus is normal in caliber, without hiatal hernia.? ? Bones and chest wall:? No suspicious bony lesions.? Ribs and thoracic spine appear intact throughout.? Thyroid gland is unremarkable.? No axillary or supraclavicular adenopathy.? ? Abdomen:? Visualized upper abdominal solid organs appear normal in the early arterial phase of enhancement.? ? IMPRESSION:? 1. No central pulmonary embolism. ? 2. Left upper lobe medial consolidation.? This is consistent with pneumonia.? Additional mild bilateral opacity.? This could be due to multifocal pneumonia and/or bronchitis.? Recommend follow-up to resolution. ? 3. Reactive shotty mediastinal lymph nodes. ? ? ? Dictated by: Dominick Bruno M.D. on 03/13/2022 at 20:25 ? ? MDM Narrative Medical decision making narrative: 46-year-old gentleman testing positive for influenza getting worse at day 10 with tachypnea, wheeze that concern may actually be cardiac wheeze with mild co ngestive heart failure. [place] is tachycardic [place] [id number] with no obvious bacterial source. I am also concerned about possible pulmonary embolism, myocarditis or post viral cardiomyopathy. Will begin Zosyn given the significant leukocytosis, PE study is ordered and CT of the abdomen and pelvis is included to see if there is an additional source to explain the white count and mild diffuse abdominal pain. He is hypokalemic at 2.9 this too will be replaced. Troponin is unremarkable. CT scan shows a consolidated left anterior upper lobe pneumonia. Labs show no evidence of acute coronary syndrome,, myocarditis, congestive heart failure. He is not hypotensive and lactic acid is not elevated. This appears to be a community-acquired post influenza left upper lobe bacterial pneumonia with hypoxemia and tachypnea and will need hospital admission. Discharge Plan Departure Patient Disposition: Admitted As Inpatient Clinical Impression: Influenza A, Hypoxia Pneumonia Qualifiers: Pneumonia type: due to unspecified organism Laterality: left Lung location: upper lobe of lung Qualified Code(s): J18.9 - Pneumonia, unspecified organism Admit Date/Time: 03/13/22 21:48 Admit Provider: Florence Sainz
[2022-03-13 18:55] LABS: Influenza A - CEPHEID Flu A POSITIVE (NEGATIVE); Influenza B - CEPHEID Flu B NEGATIVE (NEGATIVE)
[2022-03-13 19:01] LABS: COVID-19 CEPHEID 4-PLEX PCR Negative (Negative)
[2022-03-13 19:18] LABS: Add Manual Diff / Slide Review NO; Basophils Absolute Auto 200 /uL (0-100); Basophils Percent Auto 0.7 % (0-2); Eosinophils Absolute Auto 0 /uL (0-450); Eosinophils Percent Auto 0.2 % (2-4); Hematocrit 37.6 % (41-53); Hemoglobin 12.7 g/dL (13.5-17.5); Lymphocytes Absolute Auto 2000 /uL (1100-4500); Lymphocytes Percent Auto 9.2 % (25-40); Mean Corpuscular HGB Conc 33.9 % (30-36); Mean Corpuscular Hemoglobin 27.3 PG (26-34); Mean Corpuscular Volume 80.8 fL (80-100); Monocytes Absolute Auto 1100 /uL (0-900); Neutrophils Absolute Auto 18500 /uL (1500-7000); Neutrophils Percent Auto 84.9 % (50-75); Platelet Count 534 X10^3/uL (150-400); Red Blood Cell Count 4.65 X10^6/uL (4.5-5.9); Red Cell Distribution Width 13.5 % (11.6-14.8); White Blood Cell Count 21.8 X10^3/uL (4.5-11.0)
[2022-03-13 19:27] LABS: INR 1.5 (0.9-1.3); Prothrombin Time 17.8 SECONDS (10.1-12.7)
--- NOTE | 2022-03-13 19:40 | DI.CT.S_ITS ---
PROCEDURE: CT ANGIO CHEST PE PROTOCOL INDICATIONS: high risk PE TECHNIQUE: After the administration of intravenous contrast, 2 mm thick sections acquired from the pulmonary apices to the posterior costophrenic angles. 3-dimensional maximum intensity projection (MIP) coronal and sagittal reformats were then acquired through the thorax. For radiation dose reduction, the following was used: automated exposure control, adjustment of mA and/or kV according to patient size. COMPARISON: None. FINDINGS: Image quality: Good. Pulmonary arteries: Pulmonary arteries are normal in size, and demonstrate no intraluminal filling defects to suggest central pulmonary embolism. Lungs and pleura: Consolidation in the left upper lobe medially. Scattered opacity bilaterally. Some of this opacity may have a tree-in-bud nodular distribution. Secretions in the left mainstem bronchus. A few areas of distal mucus airway plugging. No pleural effusions or pneumothorax. Mediastinum: Heart size is normal, without pericardial effusion. No mediastinal or hilar adenopathy. Shotty prevascular node, (4/59), suspect reactive etiology. Thoracic aorta is normal in caliber and enhancement. Esophagus is normal in caliber, without hiatal hernia. Bones and chest wall: No suspicious bony lesions. Ribs and thoracic spine appear intact throughout. Thyroid gland is unremarkable. No axillary or supraclavicular adenopathy. Abdomen: Visualized upper abdominal solid organs appear normal in the early arterial phase of enhancement. IMPRESSION: 1. No central pulmonary embolism. 2. Left upper lobe medial consolidation. This is consistent with pneumonia. Additional mild bilateral opacity. This could be due to multifocal pneumonia and/or bronchitis. Recommend follow-up to resolution. 3. Reactive shotty mediastinal lymph nodes. Dictated by: Dominick Bruno M.D. on 03/13/2022 at 20:25 Approved by: Dominick Bruno M.D. on 03/13/2022 at 20:30
--- NOTE | 2022-03-13 19:40 | DI.CT.S_ITS ---
PROCEDURE: CT ABDOMEN PELVIS W CON INDICATIONS: leukocytosis, abdominal pain TECHNIQUE: After the administration of IV contrast, axial sections were acquired from the lung bases to the pubic symphysis. Coronal and sagittal reformats were performed. For radiation dose reduction, the following was used: automated exposure control, adjustment of mA and/or kV according to patient size. COMPARISON: [facility], CT, CT ANGIO CHEST PE PROTOCOL, 03/13/2022, 19:47. FINDINGS: Image quality: There is mild motion artifact. Lung bases: Numerous small bilateral pulmonary nodules are demonstrated within the visualized lung bases with a tree-in-bud appearance. Findings are consistent with an infectious or inflammatory process. Mild atelectasis or scarring are demonstrated within the medial right middle lobe and inferior left lingula. Heart: Heart is normal in size. There is a minimal pericardial effusion. ABDOMEN: Liver: No mass lesion. Gallbladder: Within normal limits without calcified gallstones. Biliary ducts: No biliary ductal dilatation. Pancreas: Unremarkable. Spleen: Normal in size. Adrenal Glands: No adrenal nodules. Kidneys and Ureters: No hydronephrosis. Stomach and Bowel: Stomach, small bowel loops, and colon are normal in caliber and wall thickness. No evidence of appendicitis. Peritoneum: No abnormal intraperitoneal fluid. No free air. Ventral Wall: No hernia. Abdominal Nodes: No retroperitoneal or mesenteric adenopathy by size criteria. Vessels: Aorta and inferior vena cava are normal in size. PELVIS: Pelvic Organs: Unremarkable. Bladder: Unremarkable. Pelvic Nodes: No enlarged lymph nodes. Miscellaneous: No inguinal hernias are seen. Bones: Visualized osseous structures demonstrate no suspicious focal lesions. IMPRESSION: 1. Small clustered pulmonary nodules within the lung bases bilaterally with a tree-in-bud appearance. The findings are consistent with an infectious or inflammatory process. 2. No definite acute intra-abdominal abnormality. Dictated by: Brock Nazario M.D. on 03/13/2022 at 21:26 Approved by: Brock Nazario M.D. on 03/13/2022 at 21:30
[2022-03-13 19:44] LABS: Alanine Aminotransferase 35 IU/L (<50); Albumin 3.5 g/dL (3.5-5.0); Albumin Globulin Ratio 0.8 (1.0-2.8); Alkaline Phosphatase 153 U/L (38-126); Aspartate Aminotransferase 37 IU/L (17-59); BUN Creatinine Ratio 10.2 (6-22); Bilirubin Total 0.4 mg/dL (0.2-1.3); Blood Urea Nitrogen 9 mg/dL (9-20); Calcium 8.4 mg/dL (8.4-10.2); Carbon Dioxide 32 mmol/L (22-32); Chloride 90 mmol/L (98-107); Estimated Glomerular Filt Rate > 60 mL/min (>60); Globulin 4.3 g/dL (1.7-4.1); Glucose 126 mg/dL (70-100); HEMOLYSIS < 15 (0-50); Potassium 2.9 mmol/L (3.4-5.1); Sodium 132 mmol/L (137-145); Total Protein 7.8 g/dL (6.3-8.2)
[2022-03-13 19:58] LABS: NT-proBNP (BNP-Adult 18+) 44 pg/mL (<125); Troponin I < 0.012 ng/mL (0.01-0.034)
[2022-03-13] MEDS: POTASSIUM CHLORIDE 20 MEQ TAB 40 MEQ PO (20:36)
[2022-03-13] MEDS: PIPERACILLIN/TAZO 4.5 GM in SODIUM CHLORIDE 0.9% 100 ML IV (20:36)
[2022-03-13 20:52] LABS: Procalcitonin 1.27 ng/mL (<0.5)
[2022-03-13] MEDS: POTASSIUM CHLORIDE IN WATER 10 MEQ/100 ML PIGGYBACK 100 MEQ IV ×3 (21:26→23:30)
[2022-03-13] MEDS: ACETAMINOPHEN 325 MG TABLET 975 MG PO (23:21)
[2022-03-14] VITALS (13 sets, daily range): BP systolic 99–134; BP diastolic 57–78; PULSE 85–95; RESP 18–22; TEMP 35.9–37.2; O2SAT 93–96; BMI 37.3
[2022-03-14] MEDS: POTASSIUM CHLORIDE IN WATER 10 MEQ/100 ML PIGGYBACK 100 MEQ IV (01:31)
[2022-03-14] MEDS: cefTRIAXone 2,000 MG in SODIUM CHLORIDE 0.9% 100 ML 200 MG IV (04:02)
[2022-03-14] MEDS: AZITHROMYCIN 500 MG in DEXTROSE 5% IN WATER 250 ML 250 MG IV (05:05)
--- NOTE | 2022-03-14 06:21 | P.HP_ITS ---
History of Present Illness History of Present Illness Date Patient Seen: 03/14/22 Time Patient Seen: 02:58 Chief complaint: short of breath, fever Narrative: Chiki Ramachandran is a 46-year-old male, no known medical history, states that he takes no medications, no surgical history presents complaining of fever, cough headache, body aches increasing dyspnea after 10 days of upper respiratory symptoms.? He states it is worse when he laid down, and is concerned that he is simply is not getting better.? He is having moderate diffuse abdominal pain, no appetite nausea but no overt vomiting, no diarrhea.? Notes that he does not have any chronic lung disease and does not use inhalers but does have increasing wheeze, work of breathing and with simply moving to facilitate physical exam his oxygen saturations dropped to 87% on room air. At the time of admit patient appears ill appearing, labored breathing short of breath diaphoretic occasional use of accessory muscles, difficulty completing sentences without shortness of breath. Afebrile temp 97.8?, BP 119/69, slightly tachycardic 104, and consistently tachypneic 31-40, O2 saturation 94-92% on 2 L. Patient has a white count 21.8, neutrophils 18,500, baso 200, mono 1100 patient's platelets 534, sodium 132, potassium 2.9, chloride 90, glucose 126, lactate 1 procalcitonin 1.27 PT 17.8, INR 1.5, alk-phos 153. ABD pelvis CT:Small clustered pulmonary nodules within the lung bases bilaterally with a tree-in-bud appearance. CTA chest No central pulmonary embolism. Left upper lobe medial consolidation.? This is consistent with pneumonia.? Additional mild bilateral opacity.? Patient admitted for acute respiratory failure with hypoxia, secondary to left upper lobe pneumonia superimposed on influenza a. Patient History Family & Social History Family History Mother Diabetes mellitus Father Cancer Safety & Behavioral: Feels Safe in Current Yes Environment Been Physically Hurt or No Threatened By a Person Tobacco & Substance use: Smoking Status Never smoker alcohol intake former Substance Use Type does not use Meds Home Medications and Allergies Allergies Allergy/AdvReac Type Severity Reaction Status Date / Time No Known Drug Allergies Allergy Verified 03/13/22 21:26 Review of Systems Review of Systems Narrative: All 12 point systems reviewed with the patient and are negative except otherwise documented. Exam Vital Signs (past 8 hours): - 03/13/22 22:30 03/13/22 22:30 03/13/22 22:45 Temperature Pulse Rate 106 H Respiratory Rate Blood Pressure 115/65 110/57 L Pulse Oximetry 95 Oxygen Delivery Method Oxygen Flow Rate 03/13/22 22:45 03/13/22 23:00 03/13/22 23:01 Temperature Pulse Rate 107 H 107 H 107 H Respiratory Rate 30 H 31 H Blood Pressure Pulse Oximetry 94 94 95 Oxygen Delivery Method Oxygen Flow Rate 03/13/22 23:01 03/13/22 23:15 03/13/22 23:15 Temperature Pulse Rate 108 H Respiratory Rate Blood Pressure 123/59 L 109/56 L Pulse Oximetry 93 Oxygen Delivery Method Oxygen Flow Rate 03/13/22 23:30 03/13/22 23:30 03/14/22 03:16 Temperature 99 F Pulse Rate 104 H 88 Respiratory Rate 31 H 20 Blood Pressure 119/69 134/72 Pulse Oximetry 94 96 Oxygen Delivery Method Nasal Cannula Oxygen Flow Rate 2 03/14/22 03:51 03/14/22 03:53 03/14/22 03:15 Temperature 97.8 F Pulse Rate 91 H Respiratory Rate 19 Blood Pressure 108/67 Pulse Oximetry 95 95 Oxygen Delivery Method Nasal Cannula Nasal Cannula Oxygen Flow Rate 2 2 Oxygen Delivery Method Nasal Cannula Oxygen Flow Rate 2 Narrative Exam Narrative: General:? Appears generally unwell, fatigued with wheezing and tachypnea but Able to give a complete and coherent history. HEENT:? Moist mucous membranes, normal sclera with reactive pupils, Neck:? No JVD, supple Respiratory:? Lungs with scattered basilar wheezes and crackles, no consolidated findings.? No retractions but tachypnea is appreciated. Full and symmetrical air movement Cardiac:? Tachycardic but otherwise Regular rate and rhythm no murmurs no bruits Abdomen:? Soft, mild diffuse tenderness without rebound or guarding,, good bowel tones, no flank pain Skin:? Warm and dry, no rashes Neurologic:? Globally weak but Grossly neurologically intact with no obvious asymmetries or abnormalities Extremities:? No trauma, well perfused, chronic venous stasis changes, left calf is slightly more swollen than the right both with 1 to 2+ edema. Psych:? Cooperative, appropriate insight and affect Objective Labs Result Diagrams: 03/13/22 19:00 03/13/22 19:00 Labs: Laboratory Results - last 24 hr 03/13/22 03/13/22 03/13/22 17:07 19:00 19:00 WBC 21.8 H RBC 4.65 Hgb 12.7 L Hct 37.6 L MCV 80.8 MCH 27.3 MCHC 33.9 RDW 13.5 Plt Count 534 H Neut % (Auto) 84.9 H Lymph % (Auto) 9.2 L [place] % (Auto) 5.0 Eos % (Auto) 0.2 L Baso % (Auto) 0.7 Neut # (Auto) 18819 H Lymph # (Auto) 2000 [place] # (Auto) 1100 H Eos # (Auto) 0 Baso # (Auto) 200 H PT 17.8 H INR 1.5 H Sodium Potassium Chloride Carbon Dioxide BUN Creatinine Estimated GFR BUN/Creatinine Ratio Glucose Lactate Calcium Total Bilirubin AST ALT Alkaline Phosphatase Troponin I NT-Pro-B Natriuret Pep Total Protein Albumin Globulin Albumin/Globulin Ratio Procalcitonin Urine Color Urine Appearance Urine pH Ur Specific [place] Urine Protein Urine Glucose (UA) Urine Ketones Urine Occult Blood Urine Nitrate Urine Bilirubin Urine Urobilinogen Ur Leukocyte Esterase Urine RBC Urine WBC Ur Squamous Epith Cells Ur Transition Epith Cell Ur Renal Epithelial Cell Calcium Oxalate Crystal Uric Acid Crystals Triple Phos Crystals Other Crystals Amorphous Sediment Urine Bacteria Hyaline Casts Granular Casts RBC Casts WBC Casts Other Casts Urine Mucus Urine Trichomonas Urine Yeast Urine Sperm Ur Culture Indicated? Micro UA Comment SARS-CoV-2 (PCR) Negative Influenza A (RT-PCR) Flu a positive H Influenza B (RT-PCR) Flu b negative 03/13/22 03/13/22 03/13/22 19:00 19:00 19:00 WBC RBC Hgb Hct MCV MCH MCHC RDW Plt Count Neut % (Auto) Lymph % (Auto) [place] % (Auto) Eos % (Auto) Baso % (Auto) Neut # (Auto) Lymph # (Auto) [place] # (Auto) Eos # (Auto) Baso # (Auto) PT INR Sodium 132 L Potassium 2.9 L Chloride 90 L Carbon Dioxide 32 BUN 9 Creatinine 0.88 Estimated GFR > 60 BUN/Creatinine Ratio 10.2 Glucose 126 H Lactate 1.0 Calcium 8.4 Total Bilirubin 0.4 AST 37 ALT 35 Alkaline Phosphatase 153 H Troponin I < 0.012 NT-Pro-B Natriuret Pep 44 Total Protein 7.8 Albumin 3.5 Globulin 4.3 H Albumin/Globulin Ratio 0.8 L Procalcitonin 1.27 H Urine Color Urine Appearance Urine pH Ur Specific [place] Urine Protein Urine Glucose (UA) Urine Ketones Urine Occult Blood Urine Nitrate Urine Bilirubin Urine Urobilinogen Ur Leukocyte Esterase Urine RBC Urine WBC Ur Squamous Epith Cells Ur Transition Epith Cell Ur Renal Epithelial Cell Calcium Oxalate Crystal Uric Acid Crystals Triple Phos Crystals Other Crystals Amorphous Sediment Urine Bacteria Hyaline Casts Granular Casts RBC Casts WBC Casts Other Casts Urine Mucus Urine Trichomonas Urine Yeast Urine Sperm Ur Culture Indicated? Micro UA Comment SARS-CoV-2 (PCR) Influenza A (RT-PCR) Influenza B (RT-PCR) 03/13/22 20:52 WBC RBC Hgb Hct MCV MCH MCHC RDW Plt Count Neut % (Auto) Lymph % (Auto) [place] % (Auto) Eos % (Auto) Baso % (Auto) Neut # (Auto) Lymph # (Auto) [place] # (Auto) Eos # (Auto) Baso # (Auto) PT INR Sodium Potassium Chloride Carbon Dioxide BUN Creatinine Estimated GFR BUN/Creatinine Ratio Glucose Lactate Calcium Total Bilirubin AST ALT Alkaline Phosphatase Troponin I NT-Pro-B Natriuret Pep Total Protein Albumin Globulin Albumin/Globulin Ratio Procalcitonin Urine Color Cancelled Urine Appearance Cancelled Urine pH Cancelled Ur Specific [place] Cancelled Urine Protein Cancelled Urine Glucose (UA) Cancelled Urine Ketones Cancelled Urine Occult Blood Cancelled Urine Nitrate Cancelled Urine Bilirubin Cancelled Urine Urobilinogen Cancelled Ur Leukocyte Esterase Cancelled Urine RBC Cancelled Urine WBC Cancelled Ur Squamous Epith Cells Cancelled Ur Transition Epith Cell Cancelled Ur Renal Epithelial Cell Cancelled Calcium Oxalate Crystal Cancelled Uric Acid Crystals Cancelled Triple Phos Crystals Cancelled Other Crystals Cancelled Amorphous Sediment Cancelled Urine Bacteria Cancelled Hyaline Casts Cancelled Granular Casts Cancelled RBC Casts Cancelled WBC Casts Cancelled Other Casts Cancelled Urine Mucus Cancelled Urine Trichomonas Cancelled Urine Yeast Cancelled Urine Sperm Cancelled Ur Culture Indicated? Cancelled Micro UA Comment Cancelled SARS-CoV-2 (PCR) Influenza A (RT-PCR) Influenza B (RT-PCR) Assessment & Plan Assessment & Plan narrative: Chiki Ramachandran is a 46-year-old male, no known medical history, states that he takes no medications, no surgical history presents complaining of fever, cough headache, body aches increasing dyspnea after 10 days of upper respiratory symptoms. Patient admitted for acute respiratory failure with hypoxia, secondary to left upper lobe pneumonia superimposed on influenza a? 1. acute respiratory failure with hypoxia, secondary to left upper lobe pneumonia superimposed on influenza A, acute, present on admission -In ED: increasing wheeze, work of breathing and with simply moving to facilitate physical exam his oxygen saturations dropped to 87% on room air. -ill appearing, labored breathing short of breath diaphoretic occasional use of accessory muscles, difficulty completing sentences without shortness of breath. -Afebrile temp 97.8?, BP 119/69, slightly tachycardic 104, and consistently tachypneic 31-40, O2 saturation 94-92% on 2 L. Patient has a -white count 21.8, neutrophils 18,500, baso 200, mono 1100 patient's platelets 534, -sodium 132, potassium 2.9, chloride 90, glucose 126, lactate 1 procalcitonin 1.27 PT 17.8, INR 1.5, alk-phos 153. Sofa: 0 -ABD pelvis CT:Small clustered pulmonary nodules within the lung bases bilaterally with a tree-in-bud appearance. CTA chest No central pulmonary embolism. Left upper lobe medial consolidation.? This is consistent with pneumonia.? Additional mild bilateral opacity.? Patient admitted for acute respiratory failure with hypoxia, secondary to left upper lobe pneumonia superimposed on influenza a -ordered A1c, blood cultures, sputum cultures, BNP, CRP, procalcitonin -patient given Zosyn in ED -ordered Rocephin and azithromycin change according to culture results -ordered Tamiflu, continue respiratory support -respiratory as needed, DuoNebs, prednisone 40 mg incentive spirometry 2. Overweight, mild, acute on chronic, present on admission -dietary consult ordered regarding nutritional education and information for dietary, lifestyle, exercise, and weight changes. -the patient is at much higher risk for medical and surgical complications due to overweight as it relates to acute illness. The patient's overweight increases the difficulty and complexity of medical and/or surgical intervention s, management and increases the chances of poor outcome such as morbidity and mortality as well as impaired wound healing. Code status: Full Surrogate decision maker: Shanell-partner DVT/VTE prophylaxis: Lovenox 40 and SCDs Disposition: Patient admitted to acute care, expected length of stay greater than 2 midnights. I have utilized all available immediate resources to obtain, update, or review the patient's current medications.. I confirmed that the patient's advanced care plan is present, Code status is documented and/or surrogate decision maker is listed in the patient's medical record. I have personally reviewed patient's chart notes from PCP, specialists, diagnostic imaging, and laboratory, Time Spent With Patient Critical Care time: I spent a total of [] minutes of critical care time on this patient's care today; this time is exclusive of procedural time.
[2022-03-14 06:27] LABS: Appearance Urine UA CLEAR; Bilirubin Urine UA NEGATIVE (NEGATIVE); Color Urine UA YELLOW; Glucose Urine UA NEGATIVE (Negative); Ketones Urine UA NEGATIVE (NEGATIVE); Leukocyte Esterase Urine UA NEGATIVE (NEGATIVE); Nitrite Urine UA NEGATIVE (Negative); Occult Blood Urine UA TRACE-INTACT (Negative); Protein Urine UA TRACE (Negative); Specific Gravity Urine UA <=1.005 (1.000-1.035); Urobilinogen Urine UA 0.2 E.U./dL (0.2); pH Urine UA 6.5 (4.5-8.0)
[2022-03-14] MEDS: ONDANSETRON 4 MG/2 ML INJ IV (06:28)
[2022-03-14 06:45] LABS: RBC Urine None Seen (0-5/HPF)
[2022-03-14 06:46] LABS: Bacteria Urine None Seen; WBC Urine 0-1/HPF (0-5/HPF)
[2022-03-14 07:16] LABS: Add Manual Diff / Slide Review NO; Basophils Absolute Auto 0 /uL (0-100); Basophils Percent Auto 0.1 % (0-2); Eosinophils Absolute Auto 0 /uL (0-450); Eosinophils Percent Auto 0.3 % (2-4); Hematocrit 33.7 % (41-53); Hemoglobin 11.4 g/dL (13.5-17.5); Lymphocytes Absolute Auto 1800 /uL (1100-4500); Lymphocytes Percent Auto 14.9 % (25-40); Magnesium 2.3 mg/dL (1.6-2.3); Mean Corpuscular HGB Conc 33.8 % (30-36); Mean Corpuscular Hemoglobin 27.2 PG (26-34); Mean Corpuscular Volume 80.4 fL (80-100); Monocytes Absolute Auto 800 /uL (0-900); Monocytes Percent Auto 6.6 % (3-14); Neutrophils Absolute Auto 9600 /uL (1500-7000); Neutrophils Percent Auto 78.1 % (50-75); Platelet Count 504 X10^3/uL (150-400); Red Blood Cell Count 4.19 X10^6/uL (4.5-5.9); Red Cell Distribution Width 13.5 % (11.6-14.8); White Blood Cell Count 12.2 X10^3/uL (4.5-11.0)
[2022-03-14 07:21] LABS: Alanine Aminotransferase 37 IU/L (<50); Albumin 3.1 g/dL (3.5-5.0); Albumin Globulin Ratio 0.8 (1.0-2.8); Alkaline Phosphatase 116 U/L (38-126); Aspartate Aminotransferase 43 IU/L (17-59); Bilirubin Total 0.2 mg/dL (0.2-1.3); Blood Urea Nitrogen 9 mg/dL (9-20); Carbon Dioxide 31 mmol/L (22-32); Chloride 97 mmol/L (98-107); Estimated Glomerular Filt Rate > 60 mL/min (>60); Globulin 3.8 g/dL (1.7-4.1); Glucose 129 mg/dL (70-100); HEMOLYSIS < 15 (0-50); Potassium 3.2 mmol/L (3.4-5.1); Sodium 134 mmol/L (137-145); Total Protein 6.9 g/dL (6.3-8.2)
[2022-03-14 07:27] LABS: NT-proBNP (BNP-Adult 18+) 23 pg/mL (<125)
[2022-03-14 07:35] LABS: Procalcitonin 0.92 ng/mL (<0.5)
[2022-03-14] MEDS: ALBUTEROL/IPRATROPIUM 3 ML AMPUL INH ×4 (07:46→22:33)
[2022-03-14] MEDS: ENOXAPARIN 40 MG/0.4 ML SYRINGE SUBCUT (09:54)
[2022-03-14] MEDS: POTASSIUM CHLORIDE 20 MEQ TAB 40 MEQ PO ×2 (09:54→18:42)
[2022-03-14 10:40] LABS: C-Reactive Protein Quant 23.9 mg/dL (<1.0)
[2022-03-14] MEDS: HYDROCODONE/ACET 5/325 TABLET 1 TAB PO ×2 (11:15→20:45)
--- NOTE | 2022-03-14 15:03 | CM.DANOTE ---
Initial DCP Assessment Note Pt is a 46 yo male, resident of [place], arrives with shortness of breath and fever, Patient admitted for acute respiratory failure with hypoxia, secondary to left upper lobe pneumonia superimposed on influenza A. PCP: Juan M Albarado Payer: [employer]/[facility] Reviewed chart, pt discussed in multidisciplinary rounds this morning. Patient expected to remain admitted for at least 24-48 hrs as treatment for pneumonia, Flu A with resp failure continues. Expected to discharge back home w/family when medically discharged. 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 No History Provided By Patient Prior Living Arrangements House Household Members family Type of transporation used prior to Drives own vehicle admit Independent with ADL's Yes Is patient alert and oriented? Yes Barriers to Discharge No Comment Home w/family expected Discharge Plan Home Transportation Arrangement Family or friend Referrals Initiated None needed
[2022-03-14] MEDS: HYDROMORPHONE 0.5 MG INJ IV ×2 (18:39→23:02)
[2022-03-14] MEDS: SODIUM CHLORIDE 0.9% 1,000 ML 100 ML IV (20:30)
[2022-03-15] VITALS (13 sets, daily range): BP systolic 104–128; BP diastolic 60–82; PULSE 87–107; RESP 16–20; TEMP 36.2–37.2; O2SAT 93–100
[2022-03-15] MEDS: HYDROMORPHONE 0.5 MG INJ IV ×4 (03:07→22:55)
[2022-03-15] MEDS: cefTRIAXone 1,000 MG in SODIUM CHLORIDE 0.9% 100 ML 200 MG IV (03:10)
[2022-03-15] MEDS: HYDROCODONE/ACET 5/325 TABLET 1 TAB PO (04:45)
[2022-03-15] MEDS: SODIUM CHLORIDE 0.9% 1,000 ML 100 ML IV (06:25)
[2022-03-15 07:20] LABS: Add Manual Diff / Slide Review NO; Basophils Absolute Auto 0 /uL (0-100); Basophils Percent Auto 0.4 % (0-2); Eosinophils Absolute Auto 100 /uL (0-450); Eosinophils Percent Auto 1.3 % (2-4); Hematocrit 34.3 % (41-53); Hemoglobin 11.7 g/dL (13.5-17.5); Lymphocytes Absolute Auto 1400 /uL (1100-4500); Lymphocytes Percent Auto 20.9 % (25-40); Mean Corpuscular HGB Conc 34.1 % (30-36); Mean Corpuscular Hemoglobin 27.7 PG (26-34); Mean Corpuscular Volume 81.3 fL (80-100); Monocytes Absolute Auto 400 /uL (0-900); Monocytes Percent Auto 5.9 % (3-14); Neutrophils Absolute Auto 4700 /uL (1500-7000); Neutrophils Percent Auto 71.5 % (50-75); Platelet Count 569 X10^3/uL (150-400); Red Blood Cell Count 4.22 X10^6/uL (4.5-5.9); Red Cell Distribution Width 13.8 % (11.6-14.8); White Blood Cell Count 6.6 X10^3/uL (4.5-11.0)
[2022-03-15 07:31] LABS: BUN Creatinine Ratio 7.6 (6-22); Blood Urea Nitrogen 5 mg/dL (9-20); Carbon Dioxide 28 mmol/L (22-32); Chloride 103 mmol/L (98-107); Estimated Glomerular Filt Rate > 60 mL/min (>60); Glucose 113 mg/dL (70-100); HEMOLYSIS < 15 (0-50); Potassium 3.8 mmol/L (3.4-5.1); Sodium 136 mmol/L (137-145)
[2022-03-15] MEDS: ALBUTEROL/IPRATROPIUM 3 ML AMPUL INH ×4 (08:38→19:19)
--- NOTE | 2022-03-15 09:26 | PM.PN.1 ---
Exam Vital Signs (past 8 hours): - 03/15/22 03:00 03/15/22 04:26 03/15/22 08:38 Temperature 97.5 F L Pulse Rate 94 H 92 H Respiratory Rate 17 18 Blood Pressure 114/68 Pulse Oximetry 95 94 93 Oxygen Delivery Method Room Air Room Air Oxygen Flow Rate 0 0 03/15/22 08:00 Temperature 97.1 F L Pulse Rate 88 Respiratory Rate 20 Blood Pressure 110/70 Pulse Oximetry 95 Oxygen Delivery Method Oxygen Flow Rate 0 Fraction of Inspired Oxygen 21 SaO2/FiO2 Ratio 452 Oxygen Delivery Method Room Air Oxygen Flow Rate 0 Narrative Exam Narrative: General:? Appears generally unwell, fatigued with wheezing and tachypnea but Able to give a complete and coherent history. HEENT:? Moist mucous membranes, normal sclera with reactive pupils, Neck:? No JVD, supple Respiratory:? Lungs with scattered basilar wheezes and crackles, no consolidated findings.? No retractions but tachypnea is appreciated. Full and symmetrical air movement Cardiac:? Tachycardic but otherwise Regular rate and rhythm no murmurs no bruits Abdomen:? Soft, mild diffuse tenderness without rebound or guarding,, good bowel tones, no flank pain Skin:? Warm and dry, no rashes Neurologic:? Globally weak but Grossly neurologically intact with no obvious asymmetries or abnormalities Extremities:? No trauma, well perfused, chronic venous stasis changes, left calf is slightly more swollen than the right both with 1 to 2+ edema. Psych:? Cooperative, appropriate insight and affect Objective Labs Result Diagrams: 03/15/22 06:50 03/15/22 06:50 Labs: Laboratory Results - last 24 hr 03/14/22 03/15/22 03/15/22 06:33 06:50 06:50 WBC 6.6 RBC 4.22 L Hgb 11.7 L Hct 34.3 L MCV 81.3 MCH 27.7 MCHC 34.1 RDW 13.8 Plt Count 569 H Neut % (Auto) 71.5 Lymph % (Auto) 20.9 L [place] % (Auto) 5.9 Eos % (Auto) 1.3 L Baso % (Auto) 0.4 Neut # (Auto) 4700 Lymph # (Auto) 1400 [place] # (Auto) 400 Eos # (Auto) 100 Baso # (Auto) 0 Sodium 136 L Potassium 3.8 Chloride 103 Carbon Dioxide 28 BUN 5 L Creatinine 0.66 Estimated GFR > 60 BUN/Creatinine Ratio 7.6 Glucose 113 H Calcium 8.0 L C-Reactive Protein 23.9 H [facility] Family History Mother Diabetes mellitus Father Cancer Social History household members: family Smoking Status: Never smoker alcohol intake: former Assessment & Plan Assessment & Plan narrative: 1. acute respiratory failure with hypoxia, secondary to left upper lobe pneumonia superimposed on influenza A, acute, present on admission -In ED: increasing wheeze, work of breathing and with simply moving to facilitate physical exam his oxygen saturations dropped to 87% on room air. -ill appearing, labored breathing short of breath diaphoretic occasional use of accessory muscles, difficulty completing sentences without shortness of breath. -Afebrile temp 97.8?, BP 119/69, slightly tachycardic 104, and consistently tachypneic 31-40, O2 saturation 94-92% on 2 L. Patient has a -white count 21.8, neutrophils 18,500, baso 200, mono 1100 patient's platelets 534, -sodium 132, potassium 2.9, chloride 90, glucose 126, lactate 1 procalcitonin 1.27 PT 17.8, INR 1.5, alk-phos 153. Sofa: 0 -ABD pelvis CT:Small clustered pulmonary nodules within the lung bases bilaterally with a tree-in-bud appearance. CTA chest No central pulmonary embolism. Left upper lobe medial consolidation.? This is consistent with pneumonia.? Additional mild bilateral opacity.? Patient admitted for acute respiratory failure with hypoxia, secondary to left upper lobe pneumonia superimposed on influenza a -ordered A1c, blood cultures, sputum cultures, BNP, CRP, procalcitonin -patient given Zosyn in ED -ordered Rocephin and azithromycin change according to culture results -ordered Tamiflu, continue respiratory support -respiratory as needed, DuoNebs, prednisone 40 mg incentive spirometry 2. Overweight, mild, acute on chronic, present on admission -dietary consult ordered regarding nutritional education and information for dietary, lifestyle, exercise, and weight changes. -the patient is at much higher risk for medical and surgical complications due to overweight as it relates to acute illness. The patient's overweight increases the difficulty and complexity of medical and/or surgical interventions, management and increases the chances of poor outcome such as morbidity and mortality as well as impaired wound healing. Code status: Full Surrogate decision maker: Shanell-partner DVT/VTE prophylaxis: Lovenox 40 and SCDs Dispo: Time Spent With Patient Critical Care time: I spent a total of [] minutes of critical care time on this patient's care today; this time is exclusive of procedural time.
[2022-03-15] MEDS: AZITHROMYCIN 250 MG TABLET 500 MG PO (09:53)
[2022-03-15] MEDS: ENOXAPARIN 40 MG/0.4 ML SYRINGE SUBCUT (09:53)
--- NOTE | 2022-03-15 11:09 | PM.PN.1 ---
Subjective Subjective Date Patient Seen: 03/15/22 Interval history: 46M admitted with flu and presumed superimposed bacterial pneumonia. No longer on supplemental O2 today, improved breathing but still short of breath with exertion and continues to feel lethargic and weak with muscle aches. Exam Vital Signs (past 8 hours): - 03/15/22 04:26 03/15/22 08:38 03/15/22 08:00 Temperature 97.5 F L 97.1 F L Pulse Rate 94 H 92 H 88 Respiratory Rate 17 18 20 Blood Pressure 114/68 110/70 Pulse Oximetry 94 93 95 Oxygen Delivery Method Room Air Oxygen Flow Rate 0 0 Fraction of Inspired Oxygen 21 SaO2/FiO2 Ratio 452 Oxygen Delivery Method Room Air Oxygen Flow Rate 0 Narrative Exam Narrative: General:? Patient is well developed and well nourished, but acutely ill appearing. HEENT:? Normocephalic, atraumatic, extraocular muscles intact, oral pharynx is clear and mucous membranes are moist. Neck: supple and symmetric, trachea is midline, no cervical adenopathy. Chest:? Normal AP diameter and contour without kyphoscoliosis, no tachypnea, equal chest rise bilaterally. Lungs:?bilateral rhonchi R >L without rales, no wheezing. Cardio:?tachcyardic rate with regular rhythm, no m/r/g. Abdomen: S NT ND. Musculoskeletal:? Muscle strength and tone are equal within normal limits, no deformity. Extremities: No edema or joint effusions. No cyanosis or clubbing. Skin:? Pale,? Warm to touch,dry and intact without rashes, ulcerations or petechiae.? Neuro:? Alert and orientated x3,? sensation to touch intact in all extremities, no gross deficits noted of cranial nerves. Psych:? Patient has a well-kept appearance, appropriate affect, mental status attitude thought context and judgment are appropriate for age. Objective Labs Result Diagrams: 03/15/22 06:50 03/15/22 06:50 Labs: Laboratory Results - last 24 hr 03/15/22 03/15/22 06:50 06:50 WBC 6.6 RBC 4.22 L Hgb 11.7 L Hct 34.3 L MCV 81.3 MCH 27.7 MCHC 34.1 RDW 13.8 Plt Count 569 H Neut % (Auto) 71.5 Lymph % (Auto) 20.9 L [place] % (Auto) 5.9 Eos % (Auto) 1.3 L Baso % (Auto) 0.4 Neut # (Auto) 4700 Lymph # (Auto) 1400 [place] # (Auto) 400 Eos # (Auto) 100 Baso # (Auto) 0 Sodium 136 L Potassium 3.8 Chloride 103 Carbon Dioxide 28 BUN 5 L Creatinine 0.66 Estimated GFR > 60 BUN/Creatinine Ratio 7.6 Glucose 113 H Calcium 8.0 L PFSH Family History Mother Diabetes mellitus Father Cancer Social History household members: family Smoking Status: Never smoker alcohol intake: former Assessment & Plan Assessment & Plan narrative: 1. acute respiratory failure with hypoxia, secondary to left upper lobe pneumonia superimposed on influenza A, acute, present on admission -ABD pelvis CT:Small clustered pulmonary nodules within the lung bases bilaterally with a tree-in-bud appearance. CTA chest No central pulmonary embolism. Left upper lobe medial consolidation.? This is consistent with pneumonia.? Additional mild bilateral opacity.? Patient admitted for acute respiratory failure with hypoxia, secondary to left upper lobe pneumonia superimposed on influenza a - continue ceftriaxone and azithomycin, leukocytosis markedly improved. - Stopped IV fluids today. - continue supportive care for flu 2. Overweight, mild, acute on chronic, present on admission -dietary consult ordered regarding nutritional education and information for dietary, lifestyle, exercise, and weight changes. -the patient is at much higher risk for medical and surgical complications due to overweight as it relates to acute illness. The patient's overweight increases the difficulty and complexity of medical and/or surgical interventions, management and increases the chances of poor outcome such as morbidity and mortality as well as impaired wound healing. Code status: Full Surrogate decision maker: Shanell-partner DVT/VTE prophylaxis: Lovenox 40 and SCDs Dispo: anticipate discharge home in the next 1-2 days if continued improvement in respiratory symptoms. Time Spent With Patient Critical Care time: I spent a total of [] minutes of critical care time on this patient's care today; this time is exclusive of procedural time.
--- NOTE | 2022-03-15 11:22 | DIET.CONS2 ---
Dietary Inpatient Consultation Note Admission Date: 03/13/2022 21:48 RD consulted for obesity in this patient with influenza A and pneumonia. Pt not appropriate for nutrition education at this time, will check in tomorrow to see if pt feeling better. Pt would benefit from outpatient referral for weight management as desired. Diet: 03/14/22 Breakfast General (Regular) Diet Diet Modifications: Nutrition Percent Meal Consumed 100% 03/15/22 09:05 Percent Meal Consumed 50% 03/14/22 19:28 Percent Meal Consumed 50% 03/14/22 14:27 Percent Meal Consumed 50% 03/14/22 09:22 Electronically Signed by: Suzette Elizabeth 03/15/22 11:22 Clinical Dietitian [address] [id number]
[2022-03-16] VITALS: BP 108/59; PULSE 95; RESP 19; TEMP 36.4; O2SAT 97
[2022-03-16 01:31] VITALS: O2SAT 96
[2022-03-16] MEDS: cefTRIAXone 1,000 MG in SODIUM CHLORIDE 0.9% 100 ML 200 MG IV (02:30)
[2022-03-16] MEDS: HYDROMORPHONE 0.5 MG INJ IV (02:42)
[2022-03-16 03:21] VITALS: BP 107/68; PULSE 86; RESP 20; TEMP 36.4; O2SAT 95
[2022-03-16 06:10] LABS: BUN Creatinine Ratio 6.8 (6-22); Blood Urea Nitrogen 5 mg/dL (9-20); Calcium 8.3 mg/dL (8.4-10.2); Carbon Dioxide 31 mmol/L (22-32); Chloride 101 mmol/L (98-107); Estimated Glomerular Filt Rate > 60 mL/min (>60); Glucose 103 mg/dL (70-100); HEMOLYSIS < 15 (0-50); Potassium 3.4 mmol/L (3.4-5.1); Sodium 138 mmol/L (137-145)
[2022-03-16 06:37] LABS: Add Manual Diff / Slide Review NO; Basophils Absolute Auto 0 /uL (0-100); Basophils Percent Auto 0.3 % (0-2); Eosinophils Absolute Auto 100 /uL (0-450); Eosinophils Percent Auto 1.4 % (2-4); Hematocrit 34.4 % (41-53); Hemoglobin 11.4 g/dL (13.5-17.5); Lymphocytes Absolute Auto 1900 /uL (1100-4500); Lymphocytes Percent Auto 30.8 % (25-40); Mean Corpuscular HGB Conc 33.3 % (30-36); Mean Corpuscular Hemoglobin 27.4 PG (26-34); Mean Corpuscular Volume 82.5 fL (80-100); Monocytes Absolute Auto 400 /uL (0-900); Monocytes Percent Auto 7.1 % (3-14); Neutrophils Absolute Auto 3700 /uL (1500-7000); Neutrophils Percent Auto 60.4 % (50-75); Platelet Count 632 X10^3/uL (150-400); Red Blood Cell Count 4.17 X10^6/uL (4.5-5.9); Red Cell Distribution Width 13.9 % (11.6-14.8); White Blood Cell Count 6.1 X10^3/uL (4.5-11.0)
[2022-03-16 07:47] VITALS: PULSE 92; RESP 18; O2SAT 94
[2022-03-16] MEDS: ALBUTEROL/IPRATROPIUM 3 ML AMPUL INH (07:47)
[2022-03-16 08:40] VITALS: BP 104/57; PULSE 99; RESP 18; TEMP 36.3; O2SAT 92
--- NOTE | 2022-03-16 08:49 | P.DS_ITS ---
History of Present Illness History of Present Illness Date Patient Seen: 03/16/22 Time Patient Seen: 02:58 Chief complaint: short of breath, fever Narrative: Chiki Ramachandran is a 46-year-old male, no known medical history, states that he takes no medications, no surgical history presents complaining of fever, cough headache, body aches increasing dyspnea after 10 days of upper respiratory symptoms.? He states it is worse when he laid down, and is concerned that he is simply is not getting better.? He is having moderate diffuse abdominal pain, no appetite nausea but no overt vomiting, no diarrhea.? Notes that he does not have any chronic lung disease and does not use inhalers but does have increasing wheeze, work of breathing and with simply moving to facilitate physical exam his oxygen saturations dropped to 87% on room air. At the time of admit patient appears ill appearing, labored breathing short of breath diaphoretic occasional use of accessory muscles, difficulty completing sentences without shortness of breath. Afebrile temp 97.8?, BP 119/69, slightly tachycardic 104, and consistently tachypneic 31-40, O2 saturation 94-92% on 2 L. Patient has a white count 21.8, neutrophils 18,500, baso 200, mono 1100 patient's platelets 534, sodium 132, potassium 2.9, chloride 90, glucose 126, lactate 1 procalcitonin 1.27 PT 17.8, INR 1.5, alk-phos 153. ABD pelvis CT:Small clustered pulmonary nodules within the lung bases bilaterally with a tree-in-bud appearance. CTA chest No central pulmonary embolism. Left upper lobe medial consolidation.? This is consistent with pneumonia.? Additional mild bilateral opacity.? Patient admitted for acute respiratory failure with hypoxia, secondary to left upper lobe pneumonia superimposed on influenza a. Discharge Providers Provider Date of admission: 03/13/22 21:48 Discharge Date: 03/16/22 Primary care physician: Juan M Albarado PA-C Consults: 03/14/22 02:50 Consult to Dietitian, Adult Routine Comment: Reason For Exam: bmi 37.3 Discharge provider: German Paiz DO Summary Hospital Course Discharge Diagnosis: 1. Acute respiratory failure with hypoxia, secondary to left upper lobe pneumo [place]iposa superimposed on influenza A, acute, present on admission -ABD pelvis CT:Small clustered pulmonary nodules within the lung bases bilaterally with a tree-in-bud appearance.? CTA chest No central pulmonary embolism. Left upper lobe medial consolidation.? This is consistent with pneumonia.? Additional mild bilateral opacity.? Patient admitted for acute respiratory failure with hypoxia, secondary to left upper lobe pneumonia superimposed on influenza a -continue ceftriaxone and azithomycin x2 days then discharged on po augmentin azithro to finish course -given albuterol inhaler on discharge 2.? Overweight, mild, acute on chronic, present on admission -dietary consult ordered regarding nutritional education and information for dietary, lifestyle, exercise, and weight changes. -the patient is at much higher risk for medical and surgical complications due to overweight as it relates to? acute illness.? The patient's overweight increases the difficulty and complexity of medical and/or surgical interventions, management and increases the chances of poor outcome such as morbidity and mortality as well as impaired wound healing. Hospital Course: Admitted for flu and pneumonia and required up to 2L. Given CAP abx and supportive care and improved and able to come off O2. [place] well enough to go home. On dc given a couple more days of po abx and albuterol inhaler. Time Spent with Patient Time spent: Greater than 30 minutes Exam Vital Signs (past 8 hours): - 03/16/22 01:31 03/16/22 03:21 03/16/22 07:47 Temperature 97.6 F Pulse Rate 86 92 H Respiratory Rate 20 18 Blood Pressure 107/68 Pulse Oximetry 96 95 94 Oxygen Delivery Method Room Air Room Air Oxygen Flow Rate 0 Fraction of Inspired Oxygen 21 SaO2/FiO2 Ratio 476 Oxygen Delivery Method Room Air Oxygen Flow Rate 0 Narrative Exam Narrative: General:? Patient is well developed and well nourished, but acutely ill appearing. HEENT:? Normocephalic, atraumatic, extraocular muscles intact, oral pharynx is clear and mucous membranes are moist. Neck: supple and symmetric, trachea is midline, no cervical adenopathy. Chest:? Normal AP diameter and contour without kyphoscoliosis, no tachypnea, equal chest rise bilaterally. Lungs:?bilateral rhonchi R >L without rales, no wheezing. Cardio:?tachcyardic rate with regular rhythm, no m/r/g. Abdomen: S NT ND. Musculoskeletal:? Muscle strength and tone are equal within normal limits, no deformity. Extremities: No edema or joint effusions. No cyanosis or clubbing. Skin:? Pale,? Warm to touch,dry and intact without rashes, ulcerations or pet echiae.? Neuro:? Alert and orientated x3,? sensation to touch intact in all extremities, no gross deficits noted of cranial nerves. Psych:? Patient has a well-kept appearance, appropriate affect, mental status attitude thought context and judgment are appropriate for age. Objective Labs Result Diagrams: 03/16/22 05:21 03/16/22 05:21 Labs: Laboratory Results - last 24 hr 03/16/22 03/16/22 05:21 05:21 WBC 6.1 RBC 4.17 L Hgb 11.4 L Hct 34.4 L MCV 82.5 MCH 27.4 MCHC 33.3 RDW 13.9 Plt Count 632 H Neut % (Auto) 60.4 Lymph % (Auto) 30.8 [place] % (Auto) 7.1 Eos % (Auto) 1.4 L Baso % (Auto) 0.3 Neut # (Auto) 3700 Lymph # (Auto) 1900 [place] # (Auto) 400 Eos # (Auto) 100 Baso # (Auto) 0 Sodium 138 Potassium 3.4 Chloride 101 Carbon Dioxide 31 BUN 5 L Creatinine 0.73 Estimated GFR > 60 BUN/Creatinine Ratio 6.8 Glucose 103 H Calcium 8.3 L PFSH Family History Mother Diabetes mellitus Father Cancer Social History household members: family Smoking Status: Never smoker alcohol intake: former Discharge Plan Discharge Plan Patient Disposition: Home Provider Discharge Comment: You were admitted for pneumonia and found to have the flu. You improved with breathing treatments and antibiotics. I've sent a few more days of antibiotics to take at home, as well as an inhaler to use if you become short of breath. Discharge orders & Medications Prescriptions: New azithromycin 500 mg tablet 500 mg PO DAILY 1 Days Qty: 1 0RF Rx Instructions: take on 03/17 amoxicillin-pot clavulanate 875-125 mg tablet 1 tab PO BID 3 Days Qty: 6 0RF Rx Instructions: take on evening of 03/16 albuterol sulfate 90 mcg/actuation HFA aerosol inhaler 2 inh inhalation Q4-6H PRN (Reason: shortness of breath or wheezing) Qty: 8.5 0RF Follow up/Referrals: Juan M Albarado PA-C [Primary Care Provider] - 1 Month (*YOLIE Albarado is not PCP. Per walk-in clinic. Please have patient establish PCP. [phone] or [phone]) Visit Report/Discharge Packet Instructions: DI for Heart Failure, DI for Prescription Opioid Use Discharge Data Primary Care Provider: Juan M Albarado
[2022-03-16 09:00] VITALS: O2SAT 92
[2022-03-16] MEDS: AZITHROMYCIN 250 MG TABLET 500 MG PO (09:39)
[2022-03-16] MEDS: ENOXAPARIN 40 MG/0.4 ML SYRINGE SUBCUT (09:39)
--- NOTE | 2022-03-16 13:02 | PC.NURSE ---
Pt a&o offers no overt c/o. RR even minimally laboured. Lungs clear slight faint wheeze. Pt spoke with Dr. Paiz. See new Orders, Pt getting ready for d/c home to care of .
== END 2022-03-16 12:55 | disposition home or self-care (01) | DRG 193 ==
LOC: ED 20:31 → AC 21:48
PROVIDERS: Emergency Medicine; Student in an Organized Health Care Education/Training Program; Admitting Provider Nurse Practitioner Family; Emergency Provider Emergency Medicine; PCP Physician Assistant; Referring Provider Physician Assistant; Visit Provider Nurse Practitioner Family
DX: J10.00 Influenza due to other identified influenza virus with unspecified type of pneumonia (principal); J96.01 Acute respiratory failure with hypoxia; E66.3 Overweight; Z68.34 Body mass index [BMI] 34.0-34.9, adult; Z20.822 Contact with and (suspected) exposure to COVID-19
CPT/HCPCS: 36415; 71045; 71275; 74177; 80048; 80053; 81001; 83605; 83735; 83880; 84145; 84484; 85025; 85610; 86140; 87040; 87070; 87086; 87205; 87635; 93005; 93010; 94640; 94760; 96365; 96366; 96367; 99284; C9803; J0696; J1170; J1650; J2405; J2543; Q9967

== ENCOUNTER 2022-07-26 22:09 | Emergency (ER) | payer MEDICAID, OTHER, SELFPAY ==
[2022-03-14 03:39] VITALS: BMI 37.3
[2022-07-26 22:17] VITALS: BP 135/75; PULSE 96; RESP 17; TEMP 36.6; O2SAT 98; BMI 37.3
--- NOTE | 2022-07-26 22:39 | DI.RAD.S_ITS ---
PROCEDURE: XR KNEE RT 3V INDICATIONS: injury TECHNIQUE: 3 views of the knee were acquired. COMPARISON: None. FINDINGS: Bones: No displaced fracture. No dislocation. Moderate degenerative changes, particularly the medial compartment. Soft tissues: Small knee joint effusion. IMPRESSION: Moderate degenerative changes, particularly the medial compartment. There is also a small joint effusion. If there is high concern for further derangement, consider MRI evaluation. Dictated by: Darion Regalado M.D. on 07/26/2022 at 23:20 Approved by: Darion Regalado M.D. on 07/26/2022 at 23:21
--- NOTE | 2022-07-26 23:38 | ED_ITS ---
HPI - Extremity Injury (Lower) General Chief Complaint: Extremity Injury, Lower Stated Complaint: rt knee pain Time Seen by Provider: 07/26/22 23:38 Source: patient Mode of arrival: Ambulatory History of Present Illness HPI Narrative: Patient is a healthy 46-year-old male who presents with ongoing right knee pain. He says had some issues with his right knee previously however his pain seems to be getting much worse. He denies any injury. He went to his primary care provider recently. He reports that he is having increased swelling. It feels like it is popping. He is when been wearing an old knee brace. He denies any injury. Related Data Previous Rx's Medication Instructions Recorded albuterol sulfate 90 mcg/actuation 2 inh inhalation Q4-6H PRN 03/16/22 aerosol inhaler shortness of breath or wheezing #8.5 grams hydrocodone 5 mg-acetaminophen 325 1 tab PO Q6H PRN pain #10 tabs 07/26/22 mg tablet Allergies Allergy/AdvReac Type Severity Reaction Status Date / Time No Known Drug Allergies Allergy Verified 03/13/22 21:26 Review of Systems Review of Systems ROS Unobtainable: All systems reviewed & are unremarkable except as noted in HPI and below Patient History Family History Mother Diabetes mellitus Father Cancer Social History household members: family Smoking Status: Never smoker alcohol intake: former Smoking Status: Never smoker Substance Use Type: does not use Exam Initial Vital Signs Initial Vital Signs: Vital Signs Temperature 98 F 07/26/22 22:17 Pulse Rate 96 H 07/26/22 22:17 Respiratory Rate 17 07/26/22 22:17 Blood Pressure 135/75 07/26/22 22:17 Pulse Oximetry 98 07/26/22 22:17 Oxygen Delivery Method Room Air 07/26/22 22:17 GENERAL: Alert 46 male appears uncomfortable but ambulating CARDIOVASCULAR: peripheral pulses in tact, cap refill <2 sec RESPIRATORY: No respiratory distress, speaks in full sentences without difficulty EXTREMITIES: Normal range of motion, no clubbing or edema. Neurovascularly intact Right lower extremity knee is swollen there is a joint effusion however full range of motion tender medially knee is stable. NEUROLOGICAL: Cranial nerves II through XII grossly intact. Normal gait and speech. SKIN: Warm, dry, no petechiae, no rashes or lesions. Course Orders Ordered: ED Orders 07/26/22 22:39 XR knee RT 3V Stat Discontinued Medications Hydrocodone Bitart/Acetaminophen (Hydrocodone/Acet 5/325 Prepack) 1 bottle MISC SEEINSTR ONE Stop: 07/26/22 23:39 Last Admin: 07/26/22 23:46 Dose: 1 bottle Documented By: JAZ Ketorolac Tromethamine (Ketorolac 30 Mg/Ml Vial) 30 mg IM NOW ONE Stop: 07/26/22 23:39 Last Admin: 07/26/22 23:46 Dose: 30 mg Documented By: JAZ Vital Signs Vital signs: Vital Signs - 8 hr 07/26/22 22:17 07/27/22 00:01 Temperature 98 F Pulse Rate 96 H 68 Respiratory Rate 17 18 Blood Pressure 135/75 135/95 H Pulse Oximetry 98 98 Oxygen Delivery Method Room Air Room Air MDM - Extremity Injury (Lower) Imaging Data Extremity x-ray #1: Radiologist's Impression: PROCEDURE:? XR KNEE RT 3V ? INDICATIONS:? injury ? TECHNIQUE:? 3 views of the knee were acquired.? ? COMPARISON:? None. ? FINDINGS:? ? Bones:? No displaced fracture.? No dislocation.? Moderate degenerative changes, particularly the medial compartment. ? Soft tissues:? Small knee joint effusion. ? ? IMPRESSION:? Moderate degenerative changes, particularly the medial compartment.? There is also a small joint effusion.? If there is high concern for further derangement, consider MRI evaluation. ? ? Dictated by: Darion Regalado M.D. on 07/26/2022 at 23:20 ?? [facility] Narrative Medical decision making narrative: Patient is having acute on chronic right knee pain. X-ray shows moderate degenerative changes. He may require outpatient MRI. Supportive care only at time. Given Toradol here in the ED and prepack of [place]. Discharge Plan Departure Patient Disposition: Home Clinical Impression: Knee sprain Instructions: DI for Knee Sprain Activity Restrictions/Additional Instructions: *You have been diagnosed with right knee sprain *What to do: You may require outpatient MRI. Wear knee brace. Elevate and ice. Ambulate as tolerated. *Continue to take medications as directed --> SENT TO [place] [facility] Motrin 600 mg every 6 hours if needed for [id number] pain Tylenol 650 mg every 6 hours if needed for mhef-am-eemxrhoy [place] 1 tablet every 6 hours if needed for severe *Follow up with your primary care provider in 2-3 days or call [phone] *Return to ER if you should have increasing pain inability to walk redness or any new, worsening or concerning symptoms CONTROLLED SUBSTANCE DISCHARGE (Narcotoic/benzodiazepine/Flexeril/Phenergan) 1. You have been prescribed narcotic medications, it does have acetaminophen/Tylenol/paracetamol in it, DO NOT TAKE MORE THAN 4,00mg in 24 hours of Tylenol. TRAMADOL DOES NOT CONTAIN TYLENOL 2. Please understand that we cannot provide further refills of narcotics, benzodiazepines or controlled substances through the ED and her pain management will need to be through your provider. 3. While on these medications you cannot drive or operate heavy machinery. 4. You cannot sign legal documents or perform any duties such as this. 5. As long as you're taking opiate pain medications he should also be taking a stool softener such as Colace, Dulcolax, MiraLAX or prune juice, to help avoid constipation. Prescriptions: New hydrocodone-acetaminophen 5-325 mg tablet 1 tab PO Q6H PRN (Reason: pain) Qty: 10 0RF No Action albuterol sulfate 90 mcg/actuation HFA aerosol inhaler 2 inh inhalation Q4-6H PRN (Reason: shortness of breath or wheezing) Qty: 8.5 0RF Referrals: Juan M Albarado PA-C [Primary Care Provider] - Stand Alone Forms: Patient Portal/API
[2022-07-26] MEDS: HYDROCODONE/ACET 5/325 PREPACK 1 BOTTLE MISC (23:46)
[2022-07-26] MEDS: KETOROLAC 30 MG/ML VIAL IM (23:46)
[2022-07-27 00:01] VITALS: BP 135/95; PULSE 68; RESP 18; O2SAT 98
== END 2022-07-27 00:02 | disposition home or self-care (01) ==
PROVIDERS: Emergency Provider Emergency Medicine; PCP Physician Assistant
DX: S83.91XA Sprain of unspecified site of right knee, initial encounter (principal)
CPT/HCPCS: 73562; 96372; 99283; J1885